=== PATIENT | male | born 1980 | race Caucasian/White ===

== ENCOUNTER 2017-06-14 21:01 | Emergency (ER) | payer OTHER, BC ==
[2017-06-14 21:05] VITALS: RESP 16
[2017-06-14] MEDS ORDERED: TDAP ADULT 0.5 ML INJ (BOOSTRIX) IM ONE (22:03)
--- NOTE | 2017-06-14 22:04 | EDPHY ---
H & P Time Seen by Provider: 06/14/17 21:09 HPI/ROS: CHIEF COMPLAINT: Left forearm laceration HISTORY OF PRESENT ILLNESS: 37-year-old male presents to the emergency department with laceration to his left forearm. 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 Denies any other trauma or injury. He is unsure of his last tetanus shot. ROS: Denies numbness or tingling in his fingers, retained foreign body or other injuries. Past Medical/Surgical History: Negative Social History: Smoking Status: Never smoked Physical Exam: On examination the patient has 2 cm fairly superficial laceration to the volar aspect of the left distal forearm. He does have extension of very superficial laceration that just barely involves the dermal layer. No evidence of retained foreign body. No palpable bony tenderness. No tendon injury identified. Full range of motion of his left upper extremity. Normal sensation to light touch with normal 2 point discrimination. Constitutional: Initial Vital Signs Temperature (C) 36.8 C 06/14/17 21:03 Heart Rate 66 06/14/17 21:03 Respiratory Rate 16 06/14/17 21:03 Blood Pressure 132/77 H 06/14/17 21:03 O2 Sat (%) 97 06/14/17 21:03 O2 Delivery Mode Room Air Allergies/Adverse Reactions: No Known Allergies Allergy (Unverified 06/14/17 21:04) Home Medications: Medication Instructions Recorded NK [No Known Home Meds] 06/14/17 MDM/Departure - MDM Procedures: Laceration repair. Verbal consent was obtained from the patient. The 2 cm laceration on the left forearm was anesthetized using 1% lidocaine with epinephrine. The wound was irrigated with saline, draped and explored to its base with a gloved finger. There were no deep structures involved. No tendon injury was identified. The wound was repaired with 5 0 Prolene, 3 sutures. The wound repair was simple. The procedure was performed by myself. Medications Given: Discontinued Medications Diphtheria/Tetanus/Acell Pertussis (Boostrix) 0.5 ml IM .ONCE ONE Stop: 06/14/17 22:04 Last Admin: 06/14/17 22:27 Dose: 0.5 ml ED Course/Re-evaluation: 37-year-old male presents with laceration to his left forearm. The wound was repaired, see procedure note. His tetanus shot was updated. He was given wound care precautions. - Depart Disposition: Home, Routine, Self-Care Clinical Impression: Laceration of left forearm Qualifiers: Encounter type: initial encounter Qualified Code(s): S51.812A - Laceration without foreign body of left forearm, initial encounter Condition: Good Instructions: Care For Your Stitches (ED), Laceration (ED), Acute Wounds (ED) Additional Instructions: Wound Care Follow-Up: Removal of sutures in 10 days. Suture removal is complimentary in uncomplicated cases. Infection or abnormal findings would require reevaluation by the MD. In that case, you may be billed. Return if you notice any signs or symptoms of infection such as redness, swelling, increased pain, fever, purulent drainage. Keep wound dry, clean and protected especially while working. You were given a tetanus shot today in the emergency department. Referrals: NONE *PRIMARY CARE P,. [Primary Care Provider] - As per Instructions
[2017-06-14 22:18] VITALS: BP 112/64; PULSE 63; TEMP 97.7; O2SAT 95
== END 2017-06-14 22:32 | disposition home or self-care (01) ==
PROC: 0HQEXZZ Repair Left Lower Arm Skin, External Approach (ICD-10-PCS; principal; 2017-06-14)
DX: S51.812A Laceration without foreign body of left forearm, initial encounter (principal); W26.8XXA Contact with other sharp object(s), not elsewhere classified, initial encounter; Y92.69 Other specified industrial and construction area as the place of occurrence of the external cause; Y99.0 Civilian activity done for income or pay; Y93.89 Activity, other specified